=== PATIENT | female | born 1935 | race Caucasian/White ===

== ENCOUNTER 2016-11-25 02:29 | Inpatient (IN) | payer OTHER ==
[~2016-11-25] VITALS: Ht 165.1 cm; Wt 61.2 kg
[~2016-11-25 02:29] MED LIST: CALCIUM600 M2 PO; CO Q-10200 MG PO; MULTI-DAY VITA1 EACH PO; OCUVITE SOFTGE1 EACH PO; SEA-OMEGA 50 C1 EACH PO; VICODIN 5-3001 EACH PO; VITAMIN B-121000 MC3 PO; VITAMIN D31000 UNI1 PO
--- NOTE | 2016-11-25 02:32 | ED GI/GU/ABDOMINAL COMPLAINT ---
See Addendum History of Present Illness General Chief Complaint: Abdominal Pain/Flank Pain Stated Complaint: "BIBA PER EMS ABD PAIN" Source: patient, EMS, friend Exam Limitations: no limitations Vital Signs & Intake/Output Vital Signs & Intake/Output Vital Signs Date Time Temp Pulse Resp B/P Pulse O2 O2 Flow FiO2 Ox Delivery Rate 11/25 0355 96.6 96 18 145/80 96 11/25 0247 98 Room Air 11/25 0234 96.8 103 20 165/70 98 Room Air Allergies Coded Allergies: NO KNOWN ALLERGIES (07/31/13) Reconcile Medications Calcium Carbonate (Calcium) (Unknown Strength) TABLET (Unknown Dose) PO DAILY SUPPLEMENT (Reported) Cholecalciferol (Vitamin D3) (Vitamin D3) (Unknown Strength) CAPSULE 2,000 IU PO DAILY SUPPLEMENT (Reported) Cyanocobalamin (Vitamin B-12) (Unknown Strength) TABLET (Unknown Dose) PO DAILY SUPPLEMENT (Reported) Fish Oil (Sea-[place] 50 Capsule) (Unknown Strength) CAPSULE (Unknown Dose) PO DAILY SUPPLEMENT (Reported) Hydrocodone/Acetaminophen (Vicodin 5-300 MG Tablet) 1 EACH TABLET 1 TAB PO BID pain Magnesium Oxide (Magnesium) 500 MG CAPSULE 1 CAP PO DAILY VITAMIN SUPPORT ( Reported) Multivitamin (Multi-Day Vitamins) 1 EACH TABLET 1 TAB PO DAILY SUPPLEMENT ( Reported) [TUMERIC] 2 CAP PO DAILY VITAMIN SUPPORT (Reported) Ubidecarenone (Co Q-10) (Unknown Strength) CAPSULE 100 MG PO DAILY SUPPLEMENT (Reported) Vit C/Vit E/Lutein/Min/[place]-3 (Ocuvite Softgel) 1 EACH CAPSULE 1 CAP PO DAILY SUPPLEMENT (Reported) Triage Nurses Notes Reviewed? yes ? N Is pt currently ? No Onset: Gradual Duration: hour(s): Timing: recent history Quality/Severity: cramping Location: generalized abdomen, left upper quadrant Radiation: no radiation Activities at Onset: none Prior Abdominal Problems: none Modifying Factors: Worsens With: palpation. Associated Symptoms: abdominal pain, nausea/vomiting HPI: 81-year-old woman in prior good health on no medications, presents with 4-5 hours of diffuse abdominal pain, with distention, with episode of nausea and no vomiting. Her last bowel movement was yesterday evening. She has no chest pain shortness of breath fever chills dysuria. She is otherwise well and has no other concerns. Past History Travel History Traveled to [place] past 21 day No Medical History Any Pertinent Medical History? see below for history Neurological: NONE EENT: NONE Cardiovascular: NONE Respiratory: NONE Gastrointestinal: NONE Hepatic: NONE Renal: NONE Musculoskeletal: RECENT FALLS Psychiatric: NONE Endocrine: NONE Blood Disorders: NONE Cancer(s): NONE History of MRSA: No History of VRE: No History of CDIFF: No Surgical History Surgical History: FEMUR FRACTURE WITH SCARLETT PLACEMENT Psychosocial History Who do you live with Friend Services at Home None What is your primary language Malagasy Family History Hx Contributory? No Review of Systems Review of Systems Constitutional: Reports: no symptoms. EENTM: Reports: no symptoms. Respiratory: Reports: no symptoms. Cardiovascular: Reports: no symptoms. GI: Reports: no symptoms. Genitourinary: Reports: no symptoms. Musculoskeletal: Reports: no symptoms. Skin: Reports: no symptoms. Neurological/Psychological: Reports: no symptoms. Hematologic/Endocrine: Reports: no symptoms. Immunologic/Allergic: Reports: no symptoms. All Other Systems: Reviewed and Negative Physical Exam Physical Exam General Appearance: well developed/nourished, mild distress, moderate distress Head: atraumatic, normal appearance Eyes: Bilateral: normal appearance. Ears, Nose, Throat, Mouth: hearing grossly normal Neck: normal inspection, supple, full range of motion Respiratory: normal breath sounds, chest non-tender, no respiratory distress, quiet respiration, lungs clear Cardiovascular: regular rate/rhythm Gastrointestinal: soft, DISTENDED, TYPANIMIC, REDUCED BOWEL SOUNDS. Back: normal inspection Extremities: normal range of motion Neurologic/Psych: no motor/sensory deficits, awake, alert, oriented x 3 Skin: intact, normal color, warm/dry Core Measures ACS in differential dx? No Severe Sepsis Present: No Septic Shock Present: No Progress Differential Diagnosis: SBO VS DIVERTICULITIS VS ILEUS VS GASTROENTERITIS VS OTHER. Plan of Care: Orders Procedure Date/time Status LACTIC ACID 11/[address] in observation 11/25 035 Active [place], Insertion/Removal/Asses 11/25 035 Active CULTURE,URINE 11/25 035 Active PARTIAL THROMBOPLASTIN TIME 11/25 023 Complete PROTHROMBIN TIME 11/25 023 Complete URINALYSIS 11/25 023 Active TROPONIN LEVEL 11/25 023 Complete LIPASE 11/25 023 Complete LACTIC ACID 11/25 023 Complete HEPATIC FUNCTION PANEL 04/15 0233 Complete CBC WITHOUT DIFFERENTIAL 11/25 232 Complete BASIC METABOLIC PANEL 11/25 232 Complete AMYLASE 11/25 232 Complete EKG 11/25 232 Active TYPE & SCREEN (NOT X-MATCH) 11/25 232 Complete Laboratory Tests 11/25/16433: Urine Color Pending, Urine Clarity Pending, Urine pH Pending, Ur Specific [place] Pending, Urine Protein Pending, Urine Ketones Pending, Urine Nitrite Pending, Urine Bilirubin Pending, Urine Urobilinogen Pending, Ur Leukocyte Esterase Pending, Ur Microscopic SEDIMENT EXAMINED, Urine RBC Pending, Urine Hemoglobin Pending, Urine Glucose Pending 11/25/167: Anion Gap 12, Estimated GFR > 60, BUN/Creatinine Ratio 30.0 H, Glucose 131 H, Lactic Acid 1.9, Calcium 9.4, Total Bilirubin 0.6, Direct Bilirubin 0.4, AST 38 H, ALT 47, Alkaline Phosphatase 167 H, Troponin I < 0.01, Total Protein 6.4, Albumin 3.1 L, Amylase 59, Lipase 254, PT 12.3, INR 1.17, APTT 29, CBC w Diff MAN DIFF ORDERED, RBC 4.90, MCV 80.7 L, MCH 25.8 L, RDW 17.9 H, MPV 7.3 L, Gran % 88.3 H, Lymphocytes % 7.4 L, Monocytes % 4.1, Eosinophils % 0.1, Basophils % 0.1, Absolute Granulocytes 4.6, Segmented Neutrophils 79 H, Band Neutrophils 9 H, Absolute Lymphocytes 0.4 L, Lymphocytes 6 L, Monocytes 6, Absolute Monocytes 0.2, Absolute Eosinophils 0, Absolute Basophils 0, Platelet Estimate ADEQUATE, Hypochromic-Microcytic 1+, Ovalocytes FEW, PUBS MCHC 31.9 L, Fld Total RBCs Counted 100 Microbiology 11/25 433 URINE ROUT: Urine Culture - RECD Diagnostic Imaging: Viewed by Me: Radiology Read, CT Scan. Discussed w/RAD: Radiology Read, CT Scan. Pre-Hospital EKG: LBBB Initial ED EKG: LBBB, unchaged from prior. Departure Departure Disposition: STILL A PATIENT Condition: Stable Clinical Impression Primary Impression: Abdominal pain Secondary Impressions: Bowel perforation Referrals: PATIENT HAS NO PRIMARY CARE DR (PCP/Family) Departure Forms: Customer Survey General Discharge Information OR/GI Note Spoke With: GENOVEVA SANTILLAN DO ED Treatment Decision: ELODIAKWADWO requires urgent operative management or an emergent procedure that cannot be performed in the Emergency Room setting. pt with perforated bowel, will require OR repair...
--- NOTE | 2016-11-25 02:40 | NUR ---
PT BIBA FROM HOME C/O SUDDEN ONSET INTERMITANT SHARP LEFT SIDE ABDOMINALPAIN SINCE 2200 LAST EVENING. SOME NAUSEA, DENIES VOMITTING. LAST BM WAS EARLY YESTERDAY. ABDOMEN DISTENDED, ABSENT BOWEL SOUNDS. DR BUSCH AT BEDSIDE TO [facility] PT ON PT ARRIVAL TO ROOM
--- NOTE | 2016-11-25 02:44 | NUR ---
EKG DONE AND SHOWN TO DR FORMAN. BLOODS DRAWN BY SLOANE BELL AND SENT TO LAB. PT DENIES FALL IN THE LAST 6 MONTHS. USESAWALKERAT BASELINE.IS CURRENTLY GOING TO PT FOR PMH TIB/FIB FX. WEARS BRACE ON RTLEG, DID NOT BRING BRACE TO HOSPITAL. 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
[2016-11-25 02:59] LABS: ABSOLUTE BASOPHIL COUNT 0 /CUMM (0.0-0.2); ABSOLUTE EOSINOPHIL COUNT 0 /CUMM (0.0-0.7); ABSOLUTE GRANULOCYTE CT 4.6 /CUMM (1.4-6.5); ABSOLUTE LYMPH COUNT 0.4 /CUMM (1.2-3.4); ABSOLUTE MONOCYTE COUNT 0.2 /CUMM (0.10-0.60); BASOPHIL % 0.1 % (0.0-2.0); EOSINOPHIL % 0.1 % (0-5); HEMATOCRIT 39.5 % (37-47); MEAN CORPUSCULAR HGB 25.8 PG (27.0-31.0); MEAN CORPUSCULAR HGB CONC 31.9 G/DL (33.0-37.0); MEAN CORPUSCULAR VOLUME 80.7 FL (81.0-99.0); MEAN PLATELET VOLUME 7.3 FL (7.4-10.4); PLATELET COUNT 366 /CUMM (130-400); RBC DISTRIBUTION WIDTH 17.9 % (11.5-14.5); WHITE BLOOD CELL COUNT 5.2 /CUMM (4.8-10.8)
[2016-11-25 03:04] LABS: GRANULOCYTE % 88.3 % (42.2-75.2); PT 12.3 SEC (9.4-12.5); PTT 29 SEC (25-37)
--- NOTE | 2016-11-25 03:18 | NUR ---
PT TO CT VIA STRETCHER. PER DR FORMAN, OK TO WAIT FOR CT RESULTS PRIOT TO TYPE & SCREEN REDRAW
--- NOTE | 2016-11-25 03:41 | RADIOLOGY REPORT ---
EXAMINATION: CHEST 1 VIEW CLINICAL INFORMATION: Abnormal breathing. Abdominal distention. Decreased breath sounds. COMPARISON: 07/31/2013. TECHNIQUE: An AP view of the chest is provided. FINDINGS: The cardiac silhouette is not enlarged. The mediastinal and hilar contours are unremarkable. There are neither pleural effusions nor pneumothoraces. There are no consolidations. There is a moderate-sized hiatal hernia. There is a moderate amount of pneumoperitoneum. The osseous structures are unremarkable. IMPRESSION: Pneumoperitoneum. A subsequent chest CT was performed. Hiatal hernia. No acute airspace disease.
--- NOTE | 2016-11-25 03:50 | CT SCAN REPORT ---
EXAMINATION: CT ABDOMEN AND PELVIS WITHOUT CONTRAST CLINICAL INFORMATION: Decreased bowel sounds. Abdominal distention. Follow-up abnormal exam. COMPARISON: Same day chest radiograph. TECHNIQUE: Contiguous axial thin section helical images of the abdomen and pelvis were performed without oral or IV contrast. The data set was reformatted in the coronal and sagittal planes and reviewed on an independent workstation. DLP: 329 mGy-cm. FINDINGS: There is mild dependent bibasilar atelectasis. Within the right lower lobe on image 15/704, there is a 3 mm nodule. The visualized lung bases are otherwise clear. The visualized portions of the heart are unremarkable. There is a moderate hiatal hernia. There is a moderate amount of pneumoperitoneum. The liver is of normal size and attenuation without focal lesions nor intrahepatic biliary ductal dilation. A normal gallbladder is identified. There is no wall thickening or discernible pericholecystic fluid. The spleen, pancreas, adrenal glands are unremarkable. Both kidneys are of normal size and attenuation without hydronephrosis or nephrolithiasis. There is a small amount of free fluid identified about the liver and spleen. In addition, there is a small amount of free fluid in both lower quadrants. There is neither mesenteric nor retroperitoneal lymphadenopathy. There is sigmoid diverticulosis without evidence of diverticulitis. There is stranding noted within the upper abdomen, particularly about the stomach. In addition, there is stranding about the splenic flexure. There is no colonic wall thickening. There is a small amount of gas present anterior to the anterior abdominal wall in a subcutaneous location. Best identified on the sagittal reconstructions, it appears as though there is a bowel containing anterior abdominal wall hernia at this location. There are no dilated loops of bowel. There is a small amount of pelvic free fluid. The urinary bladder is unremarkable. There is neither pelvic nor inguinal lymphadenopathy. There is a fat-containing left inguinal hernia. Bone windows: Neither sclerotic nor lytic bone lesions are identified. Bilateral intramedullary rods are present within the femurs. There is multilevel disc height loss within the mid to lower lumbar spine. IMPRESSION: Moderate amount of pneumoperitoneum and small amount of abdominal and pelvic free fluid. Of bowel perforation is suspected, though the location is uncertain. In that there is fat stranding within the upper abdomen adjacent to the stomach, a gastric or duodenal perforated ulcer may be the etiology for this appearance. There is also nonspecific stranding identified about the descending colon without colonic wall thickening. There is sigmoid diverticulosis without evidence of diverticulitis. There is a small anterior abdominal wall bowel containing hernia without evidence of obstruction. Moderate hiatal hernia. The aforementioned was communicated to Dr. Moscoso at 0343 hours.
--- NOTE | 2016-11-25 04:06 | NUR ---
PT MEDICATED WITH 2 MG MORPHINE IV FOR PAIN. 1L NS INFUSING AND 3 G UNASYN INFUSING ORDERED
[2016-11-25] MEDS ORDERED: TUMERIC PO (04:25)
[2016-11-25] MEDS ORDERED: MAGNESIUM500 M2 PO (04:26)
--- NOTE | 2016-11-25 05:53 | History & Physical Pre-Op ---
[address] 11/25/16 0551: General Information and HPI MD Statement: I have seen and personally examined KWADWO CLIFTON and documented this H&P. The patient is a 81 year old F who presented with a patient stated chief complaint of abdominal pain. Source of Information: patient, old records Exam Limitations: no limitations History of Present Illness: Is an 81-year-old female with a history of an innocent murmur childhood, no other medical problems, who was brought in by ambulance to the [place] ED with complaints of acute onset of upper abdominal pain since about 10 PM last night. Patient states that she ate dinner in the evening and tolerated it well. She started to experience pain which was so severe that it limited her mobility. She admits to some nausea, but otherwise denies fevers, chills, headache, dizziness, chest pain, shortness of breath, cough, emesis, diarrhea, constipation, dysuria. Workup in the ED revealed evidence of pneumoperitoneum. She remains hemodynamically stable. Allergies/Medications Allergies: Coded Allergies: NO KNOWN ALLERGIES (07/31/13) Home Med list Ascorbate Calcium (Vitamin C) 500 MG TABLET 1 TAB PO DAILY SUPPLEMENT ( Reported) [CALCIUM] 2,000 MG TAB 1 TAB PO DAILY SUPPLEMENT (Reported) Cholecalciferol (Vitamin D3) (Vitamin D) 2,000 UNIT CAPSULE 1 CAP PO DAILY SUPPLEMENT (Reported) Cyanocobalamin (Vitamin B-12) (B-12) 1,000 MCG TABLET 1 TAB PO DAILY supplement (Reported) Fish Oil/Borage/Flax/Om3,6,9#1 ([place] 3-6-9 1,200 MG Softgel) 1,200 MG CAPSULE 1 CAP PO DAILY SUPPLEMENT (Reported) Magnesium Oxide (Magnesium) 500 MG CAPSULE 1 CAP PO DAILY VITAMIN SUPPORT ( Reported) Multivitamin (Multi-Day Vitamins) 1 EACH TABLET 1 TAB PO DAILY SUPPLEMENT ( Reported) [TUMERIC] 2 CAP PO DAILY VITAMIN SUPPORT (Reported) Ubidecarenone (Coq-10) 100 MG CAPSULE 1 CAP PO DAILY SUPPLEMENT (Reported) Vit C/Vit E/Lutein/Min/[place]-3 (Ocuvite Softgel) 1 EACH CAPSULE 1 CAP PO DAILY SUPPLEMENT (Reported) Past History Medical History Neurological: NONE EENT: NONE Cardiovascular: NONE, INNOCENT MURMUR SINCE CHILDHOOD Respiratory: NONE Gastrointestinal: NONE Hepatic: NONE Renal: NONE Musculoskeletal: RECENT FALLS TIB/FIB FX Psychiatric: NONE Endocrine: NONE Blood Disorders: NONE Cancer(s): NONE History of MRSA: No History of VRE: No History of CDIFF: No Surgical History Pertinent Surgical History: FEMUR FRACTURE WITH SCARLETT PLACEMENT, ORIF HIP FRACTURE 2013 Past Family/Social History Psychosocial History Where Do You Live? Home Who Do You Live With? FRIEND, HIGINIO Services at Home None Primary Language: Ukrainian ETOH Use: occasional use Illicit Drug Use: denies illicit drug use Living Will? yes Power of Entry Level Assistant Manager/HCP? yes Name of POA/HCP: HIGINIO Functional Ability Ambulation: walker Review of Systems Review of Systems: Positive for abdominal pain and nausea. Negative for fevers, chills, headache, dizziness, chest pain, shortness of breath, cough, emesis, diarrhea, constipation, dysuria. Exam & Diagnostic Data Last 24 Hrs of Vital Signs/I&O Vital Signs Date Time Temp Pulse Resp B/P Pulse O2 O2 Flow FiO2 Ox Delivery Rate 11/25 0601 97.1 97 18 150/74 96 11/25 0355 96.6 96 18 145/80 96 11/25 0247 98 Room Air 11/25 0234 96.8 103 20 165/70 98 Room Air Intake & Output 11/25 0800 11/25 0000 11/24 1600 Intake Total 1100 Output Total Balance 1100 Intake, IV 1100 Patient 135 lb Weight Physical Exam: Gen.: Patient is awake and alert. No acute distress. She is cooperative and follows commands. She verbalizes well. Cardiac: Regular. There is a notable systolic murmur. Pulmonary: Lungs are clear to auscultation bilaterally. No wheezes, rales, rhonchi or appreciated. Abdomen: Soft and moderately distended. There is significant tenderness to light palpation in the epigastric area, and extending into the both the right upper and left upper quadrants. Positive guarding. No rebound. Hypoactive bowel sounds were heard. No surgical scars were appreciated. Extremities: Feet are warm. 2+ pedal pulses are appreciated. No significant edema or calf tenderness appreciated. Last 24 Hrs of Labs/Zach: Laboratory Tests 11/25/16 0434: Urine Color YEL, Urine Clarity HAZY H, Urine pH 6.0, Ur Specific [place] 1.020, Urine Protein 30 H, Urine Ketones TRACE H, Urine Nitrite POS H, Urine Bilirubin NEG, Urine Urobilinogen 0.2, Ur Leukocyte Esterase MOD H, Ur Microscopic SEDIMENT EXAMINED, Urine RBC 1-3, Urine WBC 25-50 H, Ur Epithelial Cells RARE, Urine Bacteria PACKD H, Urine Hemoglobin SMALL H, Urine Glucose NEG 11/25/16 0237: Anion Gap 12, Estimated GFR > 60, BUN/Creatinine Ratio 30.0 H, Glucose 131 H, Lactic Acid 1.9, Calcium 9.4, Total Bilirubin 0.6, Direct Bilirubin 0.4, AST 38 H, ALT 47, Alkaline Phosphatase 167 H, Troponin I < 0.01, Total Protein 6.4, Albumin 3.1 L, Amylase 59, Lipase 254, PT 12.3, INR 1.17, APTT 29, CBC w Diff MAN DIFF ORDERED, RBC 4.90, MCV 80.7 L, MCH 25.8 L, RDW 17.9 H, MPV 7.3 L, Gran % 88.3 H, Lymphocytes % 7.4 L, Monocytes % 4.1, Eosinophils % 0.1, Basophils % 0.1, Absolute Granulocytes 4.6, Segmented Neutrophils 79 H, Band Neutrophils 9 H, Absolute Lymphocytes 0.4 L, Lymphocytes 6 L, Monocytes 6, Absolute Monocytes 0.2, Absolute Eosinophils 0, Absolute Basophils 0, Platelet Estimate ADEQUATE, Hypochromic-Microcytic 1+, Ovalocytes FEW, PUBS MCHC 31.9 L, Fld Total RBCs Counted 100 Microbiology 11/25 0434 URINE ROUT: Urine Culture - RECD Diagnostic Data CXR Results Pneumoperitoneum. A subsequent chest CT was performed. Hiatal hernia. No acute airspace disease. Other Results CT scan of abdomen and pelvis revealed: Moderate amount of pneumoperitoneum and small amount of abdominal and pelvic free fluid. Of bowel perforation is suspected, though the location is uncertain. In that there is fat stranding within the upper abdomen adjacent to the stomach, a gastric or duodenal perforated ulcer may be the etiology for this appearance. There is also nonspecific stranding identified about the descending colon without colonic wall thickening. There is sigmoid diverticulosis without evidence of diverticulitis. There is a small anterior abdominal wall bowel containing hernia without evidence of obstruction. Moderate hiatal hernia. Assessment/Plan Assessment/Plan: Patient is an 81-year-old female with Past medical history other than an innocent murmur from childhood, who presents with acute abdominal pain, found to be due to pneumoperitoneum. It appears as though the origin of the air is proximal, possibly stomach or duodenum. Plan: -Patient will require urgent surgical exploration this morning. She understands the need for this urgent procedure and agrees to proceed. -She will be an ICU admission for now. -Keep patient nothing by mouth. Continue IV fluids. Echocardiogram done in 2012 revealed an EF of greater than 60%, however no further workup has been done since then. Patient does not have a PCP and considers herself to be in good health at baseline. -Pain control with Dilaudid, as morphine does not work well for her. -IV Unasyn 1 now for peritonitis. Patient also has an asymptomatic UTI, which this should also cover. -This was discussed in detail with both the patient and her friend Higinio, as well as Dr. Rodriguez. All are in agreement. -Medical clearance is not being obtained, as this is an urgent, lifesaving procedure. As Ranked By This Provider Problem List: 1. Pneumoperitoneum of unknown etiology GENOVEVA RODRIGUEZ DO 11/25/16 1046: Attending MD Review Statement Attending Statement Attending MD Statement: examined this patient, discuss w/resident/PA/PIPE COVERER HELPER, agreed w/resident/PA/PIPE COVERER HELPER, reviewed images Attending Assessment/Plan: Acute onset abdominal pain. CT scan shows free air likely from a perforated gastric/duadenal ulcer. Abd exam with significant tenderness. Patient will be admitted and given IVF/IV Abx, and plan for an urgent Dx Laparoscopy with repair.
--- NOTE | 2016-11-25 06:03 | NUR ---
PT STILL C/O 04/22 PAIN. PT MEDICATED 1MG HYDROMORPHONE PER ORDER
[2016-11-25] MEDS ORDERED: B-121000 MC3 PO (06:32)
[2016-11-25] MEDS ORDERED: VITAMIN C500 M6 PO (06:33)
[2016-11-25] MEDS ORDERED: OMEGA 3-6-9 11200 MG PO (06:37)
[2016-11-25] MEDS ORDERED: CALCIUM PO (06:40)
[2016-11-25] MEDS ORDERED: VITAMIN D2000 UNIT PO (06:42)
[2016-11-25] MEDS ORDERED: COQ-10100 MG PO (06:43)
--- NOTE | 2016-11-25 07:00 | NUR ---
ASSUMED CARE, PT AWAKE AND ALERT AT THIS TIME, ABD PAIN 5/10 AT THIS TIME , PT DENIES NEEDING ANYTHING FOR PAIN. PT AWARE THAT WE ARE WAITING FOR CALL STATING THAT THE OR IS READY FOR HER, FLUIDS INFUSING AT 100ML/HR VIA DIAL A FLOW.
--- NOTE | 2016-11-25 07:47 | NUR ---
PT AWAKE ALERT AND ORIENTED AT THIS TIME, STATES THAT ABD PAIN IS ABOUT 3/10 . WAITING ALIGNMENT MECHANIC THAT OR IS READY
--- NOTE | 2016-11-25 08:16 | NUR ---
PT TO OR
--- NOTE | 2016-11-25 10:45 | Operative Report ---
Operative/Inv Procedure Report Surgery Date: 11/25/16 Name of Procedure: Diagnostic laparoscopy, abdominal washout, laparoscopic repair of a perforated gastric ulcer (gastrorrhaphy) with an omental patch. Pre-Operative Diagnosis: Parforated bowel, peritonitis Post-Operative Diagnosis: Perforated anterior gastric ulcer, peritonitis Estimated Blood Loss: less than 50ml Surgeon/Lease Out Man: GENOVEVA SANTILLAN DO, MD Anesthesia: general endotracheal tube IV Fluids: 2000 cc Drains: 10 Fr LUQ ERICKA behind the spleen, 10 Fr RUQ ERICKA going across under liver to the LUQ , 10 Fr RLQ ERICKA into the pelvis Specimens: None Complications: None Condition: Stable Operative Indication: This is an 81-year-old female who presented to the emergency room with acute onset of abdominal pain. After appropriate workup was completed the patient was noted to have intra-abdominal free air and had peritonitis on physical exam. CT scan was indicative of a possible gastric or duodenal ulcer perforation. At that point a diagnostic laparoscopy possible laparotomy and repair of perforation was discussed in detail. All risks including but not limited to bleeding, infection, injury to surrounding bowel, and potential need for further surgery were discussed in detail. The patient understood everything and decided to proceed. Operative/Procedure Note Note: The patient was brought to the operating room and placed on the table in supine position. Venodyne stockings were placed and adequate general endotracheal anesthesia was obtained. The patient was prepped and draped in standard surgical fashion after a TAP block was performed by anesthesia. Began the procedure by making a 2 cm midline incision above the umbilicus. The incision was carried down to the fascia and once the fascia was clearly visualized was picked up between 2 Jason clamps and divided in the midline. Once we entered the peritoneum 2 stay 0 Vicryl sutures were placed on each side. A 12 mm blunt port was inserted and the abdominal cavity was insufflated to 15 mmHg. Upon initial examination we did note copious amounts of seropurulent fluid and white rind in the left upper quadrant and on the anterior surface of the stomach. Accessory trocars were placed 5 mm in the right upper quadrant and a 5 mm left upper quadrant, and a 12 mm in the right lateral position. At that point all the bowel was dissected off the anterior abdominal wall using blunt dissection. Anterior portion of the stomach was examined and explored, a small perforation was noted at the antrum/body junction close to the incisura angularis. Once we were adequately able to visualize the perforation it was primarily closed using 2-0 Vicryl suture. Following this an omental patch was dissected and tacked down using the same 2-0 Vicryl suture. 2 more 2-0 silk sutures were used to tack the patch down around the perforation. At the completion we had adequate repair of the perforation and the omental patch was adequately overlying it. At that point the abdominal cavity was irrigated using 6 L of normal saline. No further abnormalities were noted. Three 10 Romanian ERICKA drains were placed, one on the left side behind the spleen, one going from the right under the liver to the left upper quadrant, and one into the pelvis. Ports were removed under direct visualization no obvious bleeding was noted. The umbilical trocar site was closed using 0 Vicryl suture. The skin was closed using 4-0 Vicryl. Steri- Strips and dressings were placed. The patient was successfully extubated and transferred to the recovery room in stable condition. The patient tolerated the procedure well with no complications. Findings: Small perforated gastric ulcer on anterior surface of antrum/body junction close to incisura angularis
[2016-11-25 11:40] VITALS: BP 146/65
[2016-11-25 14:00] VITALS: BP 132/70
--- NOTE | 2016-11-25 17:35 | PN- General Surgery ---
Subjective Subjective: poc s/p lap myranda patch for gastric ulcer perf resting comfortably denies cp, sob Objective Vital Signs and I&Os Vital Signs Date Time Temp Pulse Resp B/P Pulse O2 O2 Flow FiO2 Ox Delivery Rate 11/25 1400 97.7 86 18 132/70 95 Room Air 11/25 1140 97.6 74 20 146/65 97 Room Air 11/25 0746 97.1 99 18 164/84 97 Nasal 2.0L Cannula 11/25 0659 97.1 100 18 163/90 96 Nasal 2.0L Cannula 11/25 0601 97.1 97 18 150/74 96 11/25 0355 96.6 96 18 145/80 96 11/25 0247 98 Room Air 11/25 0234 96.8 103 20 165/70 98 Room Air Intake & Output 11/25 1600 11/25 0800 11/25 0000 11/24 1600 11/24 0800 11/24 0000 Intake Total 1100 Output Total 660 Balance -660 1100 Intake, IV 1100 Output, 60 Drainage Output, Urine 600 Patient 135 lb 135 lb Weight Physical Exam: cv: rrr lungs: clear abd: softly distended drsg dry no guarding to palp ext: warm, distal cms intact [place]: clear urine ngt: no drainage jpX2: serous drainage Assessment/Plan Assessment/Plan srugical stable plan hep sq/alps iv ppi iv abx npo/ngt titrate pain meds Core Measures/Miscellaneous Venous Thromboembolism VTE Risk Factors: Age > 40, Surgery VTE Contraindications: No Contraindications VTE Diagnosis: No Beta Ger Is Beta Ger a Home Med? No Antibiotics Is Patient on Antibiotics? Yes
[2016-11-25 18:30] VITALS: BP 112/70
[2016-11-25 22:00] VITALS: BP 124/78
[2016-11-26] VITALS (7 sets, daily range): BP systolic 114–140; BP diastolic 63–78
--- NOTE | 2016-11-26 05:49 | NUR ---
PT ALERT AND ORIENTED, TEMP THIS AM 101. IV TYLENOL INFUSING, RA 88% PLACED TO 2LNC 95%. IST GIVEN. ABDOMEN DISTENDED/SOFT, POSITIVE BOWEL SOUNDS, ERICKA TIMES 3, LEFT SIDE LEAKING A LITTLE AROUND INSERTION SITE. DRESSING TO ABDOMEN CLEAN DRY AND INTACT. NGT PATENT TO LWS. DIALUDID WITH GOOD PAIN CONTROL. LAUREN WITH DIVINA URINE GOOD OUTPUT. ALPS ARE ON, CALL GARCIA WITHIN REACH
--- NOTE | 2016-11-26 07:48 | NUR ---
PT NOTED TO HAVE SLIGHT TACHYCARDIA. OVERNIGHT INOFRMED SURGICAL SATISH CHURCH NOW. PT IN NO ACUTE DISTRESS. WILL CONT TO MONITOR.
[2016-11-26 08:02] LABS: ABSOLUTE BASOPHIL COUNT 0 /CUMM (0.0-0.2); ABSOLUTE EOSINOPHIL COUNT 0.1 /CUMM (0.0-0.7); ABSOLUTE GRANULOCYTE CT 4.2 /CUMM (1.4-6.5); ABSOLUTE LYMPH COUNT 0.6 /CUMM (1.2-3.4); ABSOLUTE MONOCYTE COUNT 0.6 /CUMM (0.10-0.60); BASOPHIL % 0.4 % (0.0-2.0); WHITE BLOOD CELL COUNT 5.5 /CUMM (4.8-10.8)
[2016-11-26 08:33] LABS: EOSINOPHIL % 1.8 % (0-5); GRANULOCYTE % 77.2 % (42.2-75.2); MEAN CORPUSCULAR HGB 25.9 PG (27.0-31.0); MEAN CORPUSCULAR HGB CONC 32.2 G/DL (33.0-37.0); MEAN CORPUSCULAR VOLUME 80.6 FL (81.0-99.0); MEAN PLATELET VOLUME 7.7 FL (7.4-10.4); PLATELET COUNT 364 /CUMM (130-400); RBC DISTRIBUTION WIDTH 17.6 % (11.5-14.5); RED BLOOD CELL CT 4.15 /CUMM (4.20-5.40)
[2016-11-26 08:37] LABS: HEMATOCRIT 33.4 % (37-47)
--- NOTE | 2016-11-26 09:27 | PN- General Surgery ---
See Addendum Subjective Subjective: Patient spiked a temp to 101 overnight, with associated tachycardia in the 110s. She is afebrile and heart rate has normalized at this time. She denies any significant complaints. Admits to minor incisional pain, as expected. NG tube remains in place. She denies nausea. No flatus or bowel movement as of yet. She is out of bed to the chair and states that she feels so much better versus preop. Tavares catheter remains in place. She otherwise denies headache, dizziness, chest pain, shortness of breath. Objective Vital Signs and I&Os Vital Signs *most recent HR this morning was reported by RN to be 88. Date Time Temp Pulse Resp B/P Pulse O2 O2 Flow FiO2 Ox Delivery Rate 11/26 0649 99.6 11/26 0546 101.0 108 18 140/66 97 Nasal 2.0L Cannula 11/26 0536 101.0 11/26 0119 98.2 110 20 116/78 94 Room Air 11/25 2200 99.7 110 18 124/78 92 Room Air 11/25 2002 100.6 11/25 2003 100.6 11/25 1906 101.4 11/25 1830 101.4 110 18 112/70 92 Room Air 11/25 1400 97.7 86 18 132/70 95 Room Air 11/25 1140 97.6 74 20 146/65 97 Room Air Intake & Output 11/26 1600 11/26 0800 11/26 0000 11/25 1600 11/25 0800 11/25 0000 Intake Total 404 703 8549 Output Total 595 590 660 Balance 205 310 -660 1100 Intake, IV 090 111 8850 Intake, Oral 0 0 Output, 145 190 60 Drainage Output, 50 Gastric Drainage Output, Urine 400 400 600 Patient 135 lb 135 lb Weight Physical Exam: Gen.: Patient is awake and alert. No acute distress. She was examined sitting in the chair. Cardiac: Regular rate and rhythm. Unchanged systolic murmur. Pulmonary: There are decreased breath sounds at the bilateral bases. Lungs are clear at the apices and mid lung strong. No wheezes, rales, or rhonchi are appreciated. Abdomen: Soft, but still moderately distended. There is a small amount of serous drainage around the ERICKA drains. ERICKA output is serous. There has been a total of about 400 mL out of the drains since arrival to the floor. No purulence or bilious output is noted. +incisional tenderness, as expected. Hypoactive bowel sounds are heard. Extremities: No significant edema or calf tenderness noted bilaterally. Assessment/Plan Assessment/Plan Patient is an 81-year-old female who is now postoperative day #1 status post exploratory laparoscopy with Chucho patch repair of gastric ulcer for pneumoperitoneum. She remains relatively stable from a surgical standpoint. NG tube, Tavares, and 3 ERICK[address] drains remain in place. She had a fever overnight, which could be due to atelectasis, but she also has the possibility of infectious sources such as peritonitis and, or UTI. Plan: -Discontinue Tavares. Decrease IV fluids to 80 ML's per hour. -Keep NG tube in place. Keep nothing by mouth for now. Plan for Gastrograffin swallow in the morning to rule out leak. -Continue to monitor temps. White blood cell count is normal. Follow-up urine culture. Continue Unasyn for peritonitis. -Leave ERICKA drains in place for now. Monitor for signs of bilious or purulent output. -Monitor electrolytes. -Protonix for GI prophylaxis. -Subcutaneous heparin and Alps for DVT prophylaxis. -Continue to mobilize out of bed. -PT consult in the morning for discharge recommendations. -Will d/w attending. Core Measures/Miscellaneous Tavares Catheter Date In: 11/24/16 Still Needed? No Venous Thromboembolism VTE Risk Factors: Age > 40, Surgery VTE Contraindications: No Contraindications VTE Diagnosis: No Beta Ger Is Beta Ger a Home Med? No Antibiotics Is Patient on Antibiotics? Yes
--- NOTE | 2016-11-26 11:30 | NUR ---
LATE ENTRY: PT CALLED RN TO ROOM. NG TUBE NOTED IN PT'S HAND. PT REPORTS SHE FELT HER "NOSE WAS WET" AND "IT CAME OUT." SURGICAL SATISH CHURCH NOTIFIED. PER PA, DR. SANTILLAN CONTACTED. SNO. WILL CONT TO MONITOR.
--- NOTE | 2016-11-26 12:02 | Event Note ---
Event Note Event Note: I was called by RN to inform me that the patient pulled her ngt out. It doesn't appear to be intentional. Pt states that the tube was "wet." I advised the tube to not be replaced due to the risk of injury to the myranda patch without direct visualization. Dr. Rodriguez agrees. Plan for gastrograffin swallow in am.
--- NOTE | 2016-11-26 23:55 | Surgical Discharge Summary ---
Visit Information Visit Dates Admission Date: 11/25/16 Discharge Date: 12/04/16 History of Present Illness Chief Complaint: Abdominal pain Medical History Neurological: NONE EENT: NONE Cardiovascular: NONE, INNOCENT MURMUR SINCE CHILDHOOD Respiratory: NONE Gastrointestinal: NONE Hepatic: NONE Renal: NONE Musculoskeletal: RECENT FALLS TIB/FIB FX Psychiatric: NONE Endocrine: NONE Blood Disorders: NONE Cancer(s): NONE ELECTROCARDIOGRAPHIC TECHNICIAN/Reproductive: NONE History of MRSA: No History of VRE: No History of CDIFF: No Isolation History: Standard Surgical History Pertinent Surgical History: FEMUR FRACTURE WITH SCARLETT PLACEMENT ORIF HIP FRACTURE 2013 Psychosocial History Where Do You Live? Home Who Do You Live With? Friend Services at Home: None What is Your Primary Language? Portuguese ETOH Use: occasional use Review of Systems: see HPI Hospital Course Course Attending Physician: GENOVEVA RODRIGUEZ DO Primary Care Physician: PATIENT HAS NO PRIMARY CARE DR Hospital Course: Patient is an 81-year-old female with no significant past medical history other than an innocent murmur since childhood, who presented to the emergency department on 11/24/2016, with complaints of acute onset of severe upper abdominal and epigastric pain. Workup in the ED revealed pneumoperitoneum and UTI. Within a few hours (on 11/25/2016), patient underwent urgent exploratory laparoscopy with Chucho patch repair of a gastric ulcer. Patient was transferred to the general medical floor in stable condition. She initially spikes some temps overnight following her surgery. The temps or most likely attributed to atelectasis, however infectious source from peritonitis or UTI could not be ruled out. Antibiotics were subsequently changed from Unasyn to Rocephin and Flagyl for better gram-negative coverage. Her nasogastric tube was inadvertently pulled out on postop day #1, but her postoperative course was otherwise uncomplicated. She was out of bed and ambulated in with physical therapy on postoperative day #1. Tavares catheter was removed and she was voiding well. She was kept NPO until a Gastrografin swallow was done on postoperative day #2. Her diet was advanced further and she tolerated it well. Her antibiotics were discontinued because she developed diarrhea, although she did complete a 7 day course while in the hospital. Her remaining drains were removed, and she was stable for discharge home with outpatient follow-up with Dr. Rodriguez as an outpatient. Complications: None Allergies: Coded Allergies: NO KNOWN ALLERGIES (07/31/13) Significant Procedures: 11/25/2016 exploratory laparoscopy and Chucho patch repair of gastric ulcer Disposition Summary Disposition Principal Diagnosis: Perforated gastric ulcer Additional Diagnosis: None Discharge Disposition: home or self care Discharge Instructions General Discharge Information Code Status: Full Code Patient's Diet: as tolerated Patient's Activity: Avoid strenuous activity and heavy lifting, pushing, pulling. No driving if Using narcotics. Follow-Up Instructions/Appts: You may shower as desired. Leave Steri-Strips in place until they fall off on her own. Please follow-up with your doctor in 1-2 weeks. Please report any of the following symptoms to MD: Fever greater than 101, redness or drainage from the incision site, increased abdominal pain, chest pain , shortness of breath. Medications at Discharge Discharge Medications: Continue taking these medications: Multivitamin (Multi-Day Vitamins) 1 EACH TABLET 1 Tablet ORAL DAILY Comments: NOT GIVEN WHILE HOSPITALIZED Vit C/Vit E/Lutein/Min/[place]-3 (Ocuvite Softgel) 1 EACH CAPSULE 1 Capsule ORAL DAILY Comments: NOT GIVEN WHILE HOSPITALIZED [TUMERIC] 2 Capsule ORAL DAILY Comments: NOT GIVEN WHILE HOSPITALIZED Magnesium Oxide (Magnesium) 500 MG CAPSULE 1 Capsule ORAL DAILY Comments: NOT GIVEN WHILE HOSPITALIZED Cyanocobalamin (Vitamin B-12) (B-12) 1,000 MCG TABLET 1 Tablet ORAL DAILY Comments: NOT GIVEN WHILE HOSPITALIZED Ascorbate Calcium (Vitamin C) 500 MG TABLET 1 Tablet ORAL DAILY Comments: NOT GIVEN WHILE HOSPITALIZED Fish Oil/Borage/Flax/Om3,6,9#1 ([place] 3-6-9 1,200 MG Softgel) 1,200 MG CAPSULE 1 Capsule ORAL DAILY Comments: NOT GIVEN WHILE HOSPITALIZED [CALCIUM] 2,000 MG TAB 1 Tablet ORAL DAILY Comments: NOT GIVEN WHILE HOSPITALIZED Cholecalciferol (Vitamin D3) (Vitamin D) 2,000 UNIT CAPSULE 1 Capsule ORAL DAILY Comments: NOT GIVEN WHILE HOSPITALIZED Ubidecarenone (Coq-10) 100 MG CAPSULE 1 Capsule ORAL DAILY Comments: NOT GIVEN WHILE HOSPITALIZED Start taking the following new medications: Oxycodone HCl/Acetaminophen (Percocet 5-325 MG Tablet) 5 MG-325 MG TABLET 1-2 Tablet ORAL EVERY 4 HOURS NEEDED as needed for PAIN Qty = 30 No Refills Comments: LAST DOSE GIVEN 12/04/16 AT 09:30 AM
[2016-11-27 06:03] VITALS: BP 146/72
--- NOTE | 2016-11-27 07:50 | PN- General Surgery ---
Subjective Subjective: Awake, alert No specific complaints no nausea No flatus or BM yet but feeling movement in the abdomen Ambulating without difficulty Objective Vital Signs and I&Os Vital Signs Date Time Temp Pulse Resp B/P Pulse O2 O2 Flow FiO2 Ox Delivery Rate 11/27 0603 99.0 98 18 146/72 95 Room Air 11/26 2253 98.7 111 20 132/66 95 Room Air 11/26 1815 97.2 110 20 114/64 96 Nasal 4.0L Cannula 11/26 1417 99.1 104 20 132/65 98 Nasal 1.0L Cannula 11/26 1005 100.6 103 20 127/63 99 Nasal 1.0L Cannula 11/26 0900 88 96 Nasal 1.0L Cannula 11/26 0800 96 Nasal 2.0L Cannula Intake & Output 11/27 0800 11/27 0000 11/26 1600 11/26 0800 11/26 0000 11/25 1600 Intake Total 660 560 820 800 900 Output Total 355 740 320 595 590 660 Balance 305 -180 500 205 310 -660 Intake, IV 660 560 820 800 900 Intake, Oral 0 0 0 0 0 Number 0 Bowel Movements Output, 55 40 120 145 190 60 Drainage Output, 50 Gastric Drainage Output, Urine 300 700 200 400 400 600 Patient 135 lb Weight Physical Exam: temp 99 this morning VSS General: alert and oriented times three Chest: clear anteriorly bilaterally, RRR Abd: soft, nondistended, good bs in all quadrants wounds: dressed, dry Ext: warm, no edema ERICKA's 1: 20/8 hours, 75cc/24 hrs 2: 5/8 hours, 30cc/24 hours 3: 30/8 hours, 110/24 hours All serosanguinous Results Last 48 Hours of Labs: Laboratory Tests 11/27 11/26 0630 0632 Chemistry Sodium (137 - 145 mmol/L) Pending 134 L Potassium (3.5 - 5.1 mmol/L) Pending 4.3 Chloride (98 - 107 mmol/L) Pending 104 Carbon Dioxide (22 - 30 mmol/L) Pending 22 Anion Gap (5 - 16) Pending 8 BUN (7 - 17 mg/dL) Pending 14 Creatinine (0.5 - 1.0 mg/dL) Pending 0.6 Estimated GFR (>60 ml/min) > 60 BUN/Creatinine Ratio (7 - 25 %) Pending 23.3 Magnesium Pending Troponin I (< 0.11 ng/ml) < 0.01 Hematology CBC w Diff Pending NO MAN DIFF REQ WBC (4.8 - 10.8 /CUMM) Pending 5.5 RBC (4.20 - 5.40 /CUMM) Pending 4.15 L Hgb (12.0 - 16.0 G/DL) Pending 10.8 L Hct (37 - 47 %) Pending 33.4 L MCV (81.0 - 99.0 FL) Pending 80.6 L MCH (27.0 - 31.0 PG) Pending 25.9 L RDW (11.5 - 14.5 %) Pending 17.6 H Plt Count (130 - 400 /CUMM) Pending 364 MPV (7.4 - 10.4 FL) Pending 7.7 Gran % (42.2 - 75.2 %) 77.2 H Lymphocytes % (20.5 - 51.1 %) 10.4 L Monocytes % (1.7 - 9.3 %) 10.2 H Eosinophils % (0 - 5 %) 1.8 Basophils % (0.0 - 2.0 %) 0.4 Absolute Granulocytes (1.4 - 6.5 /CUMM) 4.2 Absolute Lymphocytes (1.2 - 3.4 /CUMM) 0.6 L Absolute Monocytes (0.10 - 0.60 /CUMM) 0.6 Absolute Eosinophils (0.0 - 0.7 /CUMM) 0.1 Absolute Basophils (0.0 - 0.2 /CUMM) 0 PUBS MCHC (33.0 - 37.0 G/DL) Pending 32.2 L Assessment/Plan Assessment/Plan 81 yo female s/p myranda patch/gastric ulcer pod 2 npo awaiting gg swallow eval this am good bs - consider clear liquids if swallow eval negative await bowel function fu cultures rocephin/flagyl for peritonitis, awaiting final cx/sens continue ERICKA's for now Core Measures/Miscellaneous Tavares Catheter Date In: 11/24/16 Venous Thromboembolism VTE Risk Factors: Age > 40, Surgery VTE Contraindications: No Contraindications VTE Diagnosis: No Beta Ger Is Beta Ger a Home Med? No Antibiotics Is Patient on Antibiotics? Yes
[2016-11-27 08:23] LABS: ABSOLUTE BASOPHIL COUNT 0 /CUMM (0.0-0.2); ABSOLUTE EOSINOPHIL COUNT 0.2 /CUMM (0.0-0.7); ABSOLUTE GRANULOCYTE CT 1.2 /CUMM (1.4-6.5); ABSOLUTE LYMPH COUNT 0.5 /CUMM (1.2-3.4); ABSOLUTE MONOCYTE COUNT 0.5 /CUMM (0.10-0.60); BASOPHIL % 0 % (0.0-2.0); EOSINOPHIL % 6.6 % (0-5); GRANULOCYTE % 51.6 % (42.2-75.2); HEMATOCRIT 29.9 % (37-47); MEAN CORPUSCULAR HGB 26.1 PG (27.0-31.0); MEAN CORPUSCULAR HGB CONC 32.2 G/DL (33.0-37.0); MEAN PLATELET VOLUME 7.7 FL (7.4-10.4); PLATELET COUNT 374 /CUMM (130-400); RBC DISTRIBUTION WIDTH 17.6 % (11.5-14.5); RED BLOOD CELL CT 3.69 /CUMM (4.20-5.40)
--- NOTE | 2016-11-27 13:30 | RADIOLOGY REPORT ---
EXAMINATION: FLUOROSCOPY UPPER GI WITH GASTROGRAFIN CLINICAL INFORMATION: Status post Chucho patch repair of gastric ulcer on 11/25/2016. Evaluate for leak. COMPARISON: CT scan of the abdomen and pelvis dated 11/25/2016. TECHNIQUE: Preliminary kiln fireman view of the abdomen was obtained. A limited Gastrografin upper GI study was performed using 30 ml of Gastroview with the patient in the semiupright position. Multiple spot films were acquired. FINDINGS: The preliminary kiln fireman view of the abdomen performed on 2 images demonstrate a drain and postsurgical barry in the epigastric region. Additional drain is seen in the left upper quadrant and in the left mid pelvis. Bowel gas pattern is normal. Small amount of subsegmental that might be a small hiatal hernia with atelectasis versus heart is again and trace effusion is seen in the left lung base. Bilateral compression hip screws are partially included. Dense mitral annular calcification is also noted. Esophageal distensibility and motility is normal. The GE junction is located below the level of the diaphragm and no GE reflux seen. There is slight irregularity of the mucosal pattern in the gastric fundus region, perhaps related to the recent Chucho patch repair of a gastric ulcer. Remainder of the stomach is grossly unremarkable though on this limited exam, gastric distensibility cannot be fully assessed. There is prompt emptying into the duodenum with the duodenal bulb and C-sweep appear grossly unremarkable. FLUOROSCOPY TIME: 0.54 minutes. IMPRESSION: Postoperative changes seen associated with the gastric fundus, without evidence of focal leak.
[2016-11-27 14:25] VITALS: BP 112/57
[2016-11-27 22:23] VITALS: BP 120/62
[2016-11-28 07:25] VITALS: BP 130/57
--- NOTE | 2016-11-28 07:57 | PN- General Surgery ---
Surgical Brief Attending Note Brief Attending Note: Pt looks well and has no complaints. She was seen by me at 6pm last night and started on ice chips. Her abdomen is soft and nontender, the ERICKA drains are all serous. We can begin a clear liquid diet today. Will remove the ERICKA that is in the pelvis but leave the other 2 drains. Pt should remain on IV antibiotics but if she is tolerating clears today than I would heplock her IV later. has been ambulating with walker well. Plan for discharge on after 5 days of IV antibiotics and will switch to oral antx at that time
[2016-11-28 08:06] LABS: WHITE BLOOD CELL COUNT 2.4 /CUMM (4.8-10.8)
[2016-11-28 08:29] LABS: ABSOLUTE BASOPHIL COUNT 0 /CUMM (0.0-0.2); ABSOLUTE EOSINOPHIL COUNT 0.1 /CUMM (0.0-0.7); ABSOLUTE GRANULOCYTE CT 1.5 /CUMM (1.4-6.5); ABSOLUTE LYMPH COUNT 0.5 /CUMM (1.2-3.4); ABSOLUTE MONOCYTE COUNT 0.6 /CUMM (0.10-0.60); BASOPHIL % 0.6 % (0.0-2.0); EOSINOPHIL % 5.1 % (0-5); GRANULOCYTE % 53.9 % (42.2-75.2); HEMATOCRIT 29.9 % (37-47); MEAN CORPUSCULAR HGB 25.8 PG (27.0-31.0); MEAN CORPUSCULAR HGB CONC 31.9 G/DL (33.0-37.0); MEAN CORPUSCULAR VOLUME 81.1 FL (81.0-99.0); MEAN PLATELET VOLUME 7.6 FL (7.4-10.4); PLATELET COUNT 362 /CUMM (130-400); RBC DISTRIBUTION WIDTH 17.9 % (11.5-14.5); RED BLOOD CELL CT 3.69 /CUMM (4.20-5.40); WHITE BLOOD CELL COUNT 2.8 /CUMM (4.8-10.8)
[2016-11-28 14:44] VITALS: BP 122/66
--- NOTE | 2016-11-28 15:16 | NUR ---
NSG NOTE: PATIENT HAD INCONTINENT EPISODE OF LOOSE STOOL; THIS IS UNUSAL FOR PATIENT SEEING SHE IS NORMALLY CONTINENT OF BOWEL AND BLADDER; SURGICAL PA SCOTT AWARE AT THIS TIME; WILL CONT TO MONITOR
[2016-11-28 22:05] VITALS: BP 148/82
--- NOTE | 2016-11-29 05:39 | NUR ---
NURSING NOTE: PT GIVEN A PAIN MED DURING DOWNTIME AT 0450 FOR 7/10 PAIN.
[2016-11-29 07:35] VITALS: BP 133/71
--- NOTE | 2016-11-29 07:39 | PN- General Surgery ---
Subjective Subjective: The patient was seen this morning postoperatively day #4. She reports the pain is under adequate control and has no other complaints the current time. She is tolerating a clear liquid diet without nausea and is eager to get out of bed this morning. Her loose bowel movements have resolved and she is overall more comfortable today. Objective Vital Signs and I&Os Vital Signs Date Time Temp Pulse Resp B/P B/P Pulse O2 O2 Flow FiO2 Mean Ox Delivery Rate 11/29 0735 99.7 72 20 133/71 97 11/28 2205 99.2 106 20 148/82 92 11/28 1444 98.7 86 20 122/66 98 Intake & Output 11/29 0800 11/29 0000 11/28 1600 11/28 0800 11/28 0000 11/27 1600 Intake Total 746 954 9646 320 1395 Output Total 60 400 1000 398 310 Balance 540 -55 2440 -986 90 5456 Intake, IV 600 225 740 320 675 Intake, Oral 120 2700 720 Number 2 3 0 0 Bowel Movements Output, 60 48 60 Drainage Output, Urine 400 1000 350 250 Patient 135 lb Weight Physical Exam: Gen.: Alert and in no obvious distress Skin: Warm and dry Abdomen: Soft, nondistended, appropriate incisional tenderness, bowel sounds positive. JPs are in place and holding suction with serous drainage in bulbs. Extremities: Bilateral lower extremities warm without calf tenderness. Assessment/Plan Assessment/Plan Assessment: 81-year-old female status post Chucho patch repair of perforated ulcer postoperative day #4. The patient is progressing as expected, her pain is under adequate control, and she is tolerating a clear liquid diet without nausea. Plan: Keep on clear liquid diet Follow-up morning laboratory studies Continue IV antibiotics Hep-Lock IV fluids Strict I's and O's GI and DVT prophylaxis Out of bed and ambulate Continue current pain regiment Keep JPs to self suction will probably remove them tomorrow Core Measures/Miscellaneous Tavares Catheter Date In: 11/24/16 Venous Thromboembolism VTE Risk Factors: Age > 40, Surgery VTE Contraindications: No Contraindications VTE Diagnosis: No Beta Ger Is Beta Ger a Home Med? No Antibiotics Is Patient on Antibiotics? Yes If Yes: infection
[2016-11-29 08:02] LABS: ABSOLUTE BASOPHIL COUNT 0 /CUMM (0.0-0.2); ABSOLUTE EOSINOPHIL COUNT 0.1 /CUMM (0.0-0.7); ABSOLUTE LYMPH COUNT 0.6 /CUMM (1.2-3.4); ABSOLUTE MONOCYTE COUNT 0.9 /CUMM (0.10-0.60); HEMATOCRIT 30.1 % (37-47); MEAN PLATELET VOLUME 7.3 FL (7.4-10.4)
[2016-11-29 08:23] LABS: ABSOLUTE GRANULOCYTE CT 3.8 /CUMM (1.4-6.5); BASOPHIL % 0.6 % (0.0-2.0); EOSINOPHIL % 1.8 % (0-5); MEAN CORPUSCULAR HGB CONC 32.3 G/DL (33.0-37.0); MEAN CORPUSCULAR VOLUME 80.6 FL (81.0-99.0); PLATELET COUNT 404 /CUMM (130-400); RED BLOOD CELL CT 3.74 /CUMM (4.20-5.40)
[2016-11-29 08:29] LABS: WHITE BLOOD CELL COUNT 5.4 /CUMM (4.8-10.8)
[2016-11-29 16:00] VITALS: BP 110/64
[2016-11-29 21:57] VITALS: BP 120/60
[2016-11-30 06:54] VITALS: BP 134/74
--- NOTE | 2016-11-30 07:50 | PN- General Surgery ---
Subjective Subjective: The patient was seen this morning postoperatively day #5. She reports her pain is in adequate control and she is tolerating a full liquid diet without nausea. She is still very concerned that she is unable to manage herself because she is having frequent loose bowel movements. She had no other complaints the current time. Objective Vital Signs and I&Os Vital Signs Date Time Temp Pulse Resp B/P B/P Pulse O2 O2 Flow FiO2 Mean Ox Delivery Rate 11/30 0654 98.1 97 20 134/74 95 Room Air 11/29 2157 99.1 109 20 120/60 94 11/29 1600 98.4 92 16 110/64 96 Room Air Intake & Output 11/30 0800 11/30 0000 11/29 1600 11/29 0800 11/29 0000 11/28 1600 Intake Total 120 240 770 404 355 8329 Output Total 30 320 362 084 4154 Balance 90 -80 770 140 -55 2440 Intake, IV 120 120 250 600 225 740 Intake, Oral 120 334 139 6202 Number 1 0 5 2 Bowel Movements Output, 30 20 60 Drainage Output, Urine 300 709 517 3451 Patient 135 lb Weight Physical Exam: Gen.: Alert and in no obvious distress Skin: Warm and dry Abdomen: Soft, nondistended, appropriate incisional tenderness, bowel sounds positive. Surgical incision is clean, dry, and intact without signs of infection. There are 2 ERICKA is holding suction with serous drainage and bulbs. Extremities: Bilateral lower extremities are warm without calf tenderness or significant edema. Assessment/Plan Assessment/Plan Assessment: 81-year-old female status post Chucho patch repair of perforated gastric ulcer postoperative day 5. The patient is progressing as expected, her pain is under adequate control, she is tolerating liquid diet without nausea. She continues to have frequent loose bowel function which she finds very concerning. Plan: Continue full liquid diet Will add acidophilus Continue IV antibiotics Keep JPs to self suction Follow-up morning laboratory studies GI and DVT prophylaxis Out of bed and ambulate Core Measures/Miscellaneous Tavares Catheter Date In: 11/24/16 Venous Thromboembolism VTE Risk Factors: Age > 40, Surgery VTE Contraindications: No Contraindications VTE Diagnosis: No Beta Ger Is Beta Ger a Home Med? No Antibiotics Is Patient on Antibiotics? Yes If Yes: infection
[2016-11-30 08:01] LABS: ABSOLUTE BASOPHIL COUNT 0 /CUMM (0.0-0.2); ABSOLUTE EOSINOPHIL COUNT 0.1 /CUMM (0.0-0.7); ABSOLUTE GRANULOCYTE CT 3.8 /CUMM (1.4-6.5); ABSOLUTE LYMPH COUNT 0.8 /CUMM (1.2-3.4); ABSOLUTE MONOCYTE COUNT 0.9 /CUMM (0.10-0.60); BASOPHIL % 0.6 % (0.0-2.0); EOSINOPHIL % 1.5 % (0-5); GRANULOCYTE % 67.4 % (42.2-75.2); MEAN CORPUSCULAR HGB 25.9 PG (27.0-31.0); MEAN CORPUSCULAR HGB CONC 32.5 G/DL (33.0-37.0); MEAN CORPUSCULAR VOLUME 79.6 FL (81.0-99.0); MEAN PLATELET VOLUME 7.2 FL (7.4-10.4); PLATELET COUNT 451 /CUMM (130-400); RBC DISTRIBUTION WIDTH 17.5 % (11.5-14.5); RED BLOOD CELL CT 3.64 /CUMM (4.20-5.40); WHITE BLOOD CELL COUNT 5.7 /CUMM (4.8-10.8)
[2016-11-30 14:17] VITALS: BP 106/60
[2016-11-30 22:05] VITALS: BP 106/68
[2016-12-01 06:33] VITALS: BP 132/82
[2016-12-01 07:41] LABS: ABSOLUTE BASOPHIL COUNT 0 /CUMM (0.0-0.2); ABSOLUTE EOSINOPHIL COUNT 0.1 /CUMM (0.0-0.7); ABSOLUTE GRANULOCYTE CT 3.9 /CUMM (1.4-6.5); ABSOLUTE LYMPH COUNT 0.8 /CUMM (1.2-3.4); ABSOLUTE MONOCYTE COUNT 0.8 /CUMM (0.10-0.60); BASOPHIL % 0.2 % (0.0-2.0); EOSINOPHIL % 1.6 % (0-5); HEMATOCRIT 29.2 % (37-47); MEAN CORPUSCULAR HGB 26.1 PG (27.0-31.0); MEAN CORPUSCULAR HGB CONC 32.6 G/DL (33.0-37.0); MEAN PLATELET VOLUME 7.5 FL (7.4-10.4); PLATELET COUNT 503 /CUMM (130-400); RBC DISTRIBUTION WIDTH 17.3 % (11.5-14.5); RED BLOOD CELL CT 3.65 /CUMM (4.20-5.40); WHITE BLOOD CELL COUNT 5.6 /CUMM (4.8-10.8)
--- NOTE | 2016-12-01 08:32 | PN- General Surgery ---
Subjective Subjective: The patient was seen this morning postoperatively day #6. She reports her pain is in adequate control and she is tolerating a full liquid diet without nausea. She reports that her frequency of bowel movements has somewhat decreased. She had no other complaints the current time. Objective Vital Signs and I&Os Vital Signs Date Time Temp Pulse Resp B/P B/P Pulse O2 O2 Flow FiO2 Mean Ox Delivery Rate 12/01 0633 98.6 110 18 132/82 95 Room Air 11/30 2205 98.2 90 20 106/68 98 Room Air 11/30 1600 Room Air 11/30 1417 98.3 98 20 106/60 96 Room Air Intake & Output 12/01 1600 12/01 0800 12/01 0000 11/30 1600 11/30 0800 11/30 0000 Intake Total 370 450 450 120 240 Output Total 350 115 340 280 320 Balance 20 335 110 -160 -80 Intake, IV 130 250 120 120 Intake, Oral 240 450 200 120 Number 1 0 2 0 Bowel Movements Output, 15 40 30 20 Drainage Output, Urine 350 100 300 250 300 Physical Exam: General: Alert and oriented x3, no acute distress Cardiac: RRR, Murmur, s1s2 Pulmonary: CTA bilateral Abdomen: Softly distended, ERICKA x2 in place with serous drainage Extremities: Distal sensations intact, moves all extremities. Left lower extremity with 2+ pitting edema in foot and ankle. No redness. skin warm and well perfused, dp pulses palpable. bilateral calves soft and non-tender. Assessment/Plan Assessment/Plan This is a 81 year old female, POD 6 s/p laparoscopy with abdominal washout and myranda patch for perforated gastric ulcer. -Contiune ERICKA x2 for now, consider dc later today -Continue rocephin/flagyll -Continue full liquid diet -Hep sq for dvt ppx -ALPS/TEDS -Plan for discharge on full liquid diet -Will d/w Dr. Sterling Core Measures/Miscellaneous Tavares Catheter Date In: 11/24/16 Venous Thromboembolism VTE Risk Factors: Age > 40, Surgery VTE Contraindications: No Contraindications VTE Diagnosis: No Beta Ger Is Beta Ger a Home Med? No Antibiotics Is Patient on Antibiotics? Yes If Yes: infection
--- NOTE | 2016-12-01 10:37 | NUR ---
Physical Therapy: Pt was observed ambulating with supervision and RW with a family member in the hallways last evening. Patient appears to be at her baseline mobility. Will discontinue skilled PT intervention at this time. Thank you.
[2016-12-01 14:06] VITALS: BP 128/76
[2016-12-01 22:34] VITALS: BP 130/72
[2016-12-02 07:28] VITALS: BP 124/86
--- NOTE | 2016-12-02 11:00 | NUR ---
NURSING NOTE: PT LEFT FLOOR VIA STRETCHER WITH DISTRIBUTION FOR BLE US PER MD ORDER, PT AWAKE, A/OX3, ROOM AIR, IV PATENT, AWAIT RETURN TO FLOOR. TICKET TO ROSEY CHRISTOPHER
--- NOTE | 2016-12-02 11:20 | PN- General Surgery ---
Subjective Subjective: POD #7 s/p laparoscopic myranda patch/washout for perforated gastric ulcer. Remains on MSD, having diarrhea overnight. Remains on IV antibiotics (Day 7/). Ambulating well. Voiding spontaneously. Complains of lower extremity swelling. Objective Vital Signs and I&Os Vital Signs Date Time Temp Pulse Resp B/P B/P Pulse O2 O2 Flow FiO2 Mean Ox Delivery Rate 12/02 0728 98.4 104 20 124/86 95 Room Air 12/01 2234 97.4 102 20 130/72 98 Room Air 12/01 1406 99.1 105 18 128/76 97 Room Air Intake & Output 12/02 1600 12/02 0800 12/02 0000 12/01 1600 12/01 0800 12/01 0000 Intake Total 370 120 900 370 450 Output Total 220 300 155 350 115 Balance 150 -180 745 20 335 Intake, IV 130 130 Intake, Oral 240 120 900 240 450 Number 4 1 Bowel Movements Output, 20 55 15 Drainage Output, Urine 200 300 100 350 100 Physical Exam: Gen: AAOx3 in NAD cor; S1+S2+ Lungs: CTA slick Abd: soft, NT, ND, +BS x4 ERICKA x2 with serous drainage Ext: significant edema from foot to thighs slick. Palpable DP pulses slick. Negative Sandra's slick Current Medications: Current Medications Sig/Adriano Start time Last Medication Dose Route Stop Time Status Admin Acetaminophen 1,000 MG Q6P PRN 11/25 1645 DC 11/26 N/A 1 UNIT IV 1447 Ceftriaxone Sodium 1,000 MG Q24H 11/26 1400 DC 12/01 IV 1427 Furosemide 20 MG ONCE ONE 12/02 1215 UNVr IV 12/02 1216 Heparin Sodium 5,000 UNIT Q8 11/25 1400 AC 11/27 (Porcine) SC 1344 Hydromorphone HCl 0.5 MG Q3P PRN 11/26 1015 DC 12/01 IV 1045 Lactobacillus 1 CAP BID 11/30 1000 AC 12/02 Acidophilus PO 1023 Metronidazole 500 MG Q8H 11/26 1200 DC 12/02 N/A 1 UNIT IV 0501 Omeprazole 40 MG DAILY AC 12/02 0700 AC 12/02 PO 0501 Ondansetron HCl 4 MG Q6P PRN 11/25 1200 AC IV Oxycodone/ 1 TAB Q4P PRN 12/01 1545 AC Acetaminophen PO Oxycodone/ 2 TAB Q4P PRN 12/01 1545 AC 12/02 Acetaminophen PO 1023 Pantoprazole Sodium 40 MG DAILY 11/25 1207 DC 12/01 IV 1045 Patient Medication 1 ED .STK-MED ONE 12/01 1358 [place] Teaching ED 12/01 1359 Results Last 48 Hours of Labs: Laboratory Tests 12/01 0624 Chemistry Sodium (137 - 145 mmol/L) 139 Potassium (3.5 - 5.1 mmol/L) 3.8 Chloride (98 - 107 mmol/L) 107 Carbon Dioxide (22 - 30 mmol/L) 23 Anion Gap (5 - 16) 9 BUN (7 - 17 mg/dL) 10 Creatinine (0.5 - 1.0 mg/dL) 0.5 Estimated GFR (>60 ml/min) > 60 BUN/Creatinine Ratio (7 - 25 %) 20.0 Hematology CBC w Diff NO MAN DIFF REQ WBC (4.8 - 10.8 /CUMM) 5.6 RBC (4.20 - 5.40 /CUMM) 3.65 L Hgb (12.0 - 16.0 G/DL) 9.5 L Hct (37 - 47 %) 29.2 L MCV (81.0 - 99.0 FL) 80.0 L MCH (27.0 - 31.0 PG) 26.1 L RDW (11.5 - 14.5 %) 17.3 H Plt Count (130 - 400 /CUMM) 503 H MPV (7.4 - 10.4 FL) 7.5 Gran % (42.2 - 75.2 %) 70.0 Lymphocytes % (20.5 - 51.1 %) 13.5 L Monocytes % (1.7 - 9.3 %) 14.7 H Eosinophils % (0 - 5 %) 1.6 Basophils % (0.0 - 2.0 %) 0.2 Absolute Granulocytes (1.4 - 6.5 /CUMM) 3.9 Absolute Lymphocytes (1.2 - 3.4 /CUMM) 0.8 L Absolute Monocytes (0.10 - 0.60 /CUMM) 0.8 H Absolute Eosinophils (0.0 - 0.7 /CUMM) 0.1 Absolute Basophils (0.0 - 0.2 /CUMM) 0 PUBS MCHC (33.0 - 37.0 G/DL) 32.6 L Assessment/Plan Assessment/Plan A: POD #7 s/p laparoscopic myranda patch with washout for a perforated gastric ulcer; AVSS Plan; D/C antibiotics. JPs to stay in place per DR. Eva DIEZ and ambulate Lasix 20 mg IV x1 to alleviate lower extremity swelling DVT study performed- negative for DVT slick. Core Measures/Miscellaneous Tavares Catheter Date In: 11/24/16 Venous Thromboembolism VTE Risk Factors: Age > 40, Surgery VTE Contraindications: No Contraindications VTE Diagnosis: No Beta Ger Is Beta Ger a Home Med? No Antibiotics Is Patient on Antibiotics? Yes If Yes: infection
--- NOTE | 2016-12-02 12:16 | ULTRASOUND REPORT ---
EXAMINATION: US TRIPLEX LOWER EXTREMITY, BILATERAL CLINICAL INFORMATION: Bilateral lower extremity edema. COMPARISON: None TECHNIQUE: Color-flow triplex imaging with spectral analysis and compression Doppler were performed on the bilateral lower extremities. FINDINGS: The common femoral vein is compressible and exhibits a normal phasic waveform, bilaterally; this suggests that the iliac veins are widely patent above. Within each proximal thigh, the visualized profunda femoris vein is patent. The visualized greater saphenous vein and saphenofemoral junction are normal, bilaterally. Superficial femoral vein is patent in the proximal, mid and distal aspect of each thigh. Popliteal vein appears normal to the level of the trifurcation, bilaterally, and the visualized calf veins are grossly patent on color Doppler imaging. There is edema within subcutaneous tissues of each leg. In the right popliteal fossa, there is a 0.9 x 1.2 x 3.5 cm Fraire's cyst. IMPRESSION: 1. No evidence of deep vein thrombosis in either lower extremity. 2. Subcutaneous tissue edema is present within both lower extremities. 3. There is a 0.9 x 1.2 x 3.5 cm Fraire cyst of the right popliteal fossa.
[2016-12-02 14:32] VITALS: BP 148/72
[2016-12-02] MEDS ORDERED: PERCOCET 5-3251 EACH PO (17:23)
--- NOTE | 2016-12-02 17:27 | Patient Discharge Instructions ---
Discharge Instructions General Discharge Information You were seen/treated for: perforated gastric ulcer You had these procedures: laparoscopic myranda patch/washout of abdomen Watch for these problems: increased pain, redness or drainage from incisions, fever greater than 101F, chest pain or shortness of breath Do not soak the wound: Yes No bath, but you may shower: Yes Other wound care: Dry dressing changes over drain sites. Can stop placing dressings if there is no further leakage from wounds. Diet Continue normal diet: No Recommended Diet: mechanical soft Activity Full Activity/No Limits: No Activity Self Limited: Yes Pounds, do NOT lift more than: 10 Additional ACTIVITY Info: You may shower. Avoid baths, hot tubs or swimming, meaning do not submerge wounds. Acute Coronary Syndrome Inclusion Criteria At DC or during hospital stay patient has or had the following: ACS DIAGNOSIS No Discharge Core Measures Meds if any: Prescribed or Continued at Discharge Meds if any: NOT Prescribed or Continued at Discharge Congestive Heart Failure Inclusion Criteria At DC or during hospital stay patient has or had the following: CHF DIAGNOSIS No Discharge Core Measures Meds if any: Prescribed or Continued at Discharge Meds if any: NOT Prescribed or Continued at Discharge Cerebrovascular accident Inclusion Criteria At DC or during hospital stay patient has or had the following: CVA/TIA Diagnosis No Discharge Core Measures Meds if any: Prescribed or Continued at Discharge Meds if any: NOT Prescribed or Continued at Discharge Venous thromboembolism Inclusion Criteria VTE Diagnosis No VTE Type NONE VTE Confirmed by (Test) NONE Discharge Core Measures - Per Current guidelines, there needs to be overlap - treatment for the first 5 days of Warfarin therapy. - If discharged on Warfarin prior to 5 days of - overlap therapy, the patient will need to be - assessed for post discharge needs including - *Post discharge parental anticoagulation - *Warfarin and/or parental anticoagulation education - *Follow up date to check INR post discharge At least 5 days overlap therapy as Inpatient No Meds if any: Prescribed or Continued at Discharge Note: Overlap Therapy is Warfarin and Anticoagulant Meds if any: NOT Prescribed or Continued at Discharge
[2016-12-02 23:19] VITALS: BP 134/83
[2016-12-03 07:46] VITALS: BP 140/75
--- NOTE | 2016-12-03 08:48 | PN- General Surgery ---
See Addendum Subjective Subjective: Pt has no major complaints this morning. Pain is reasonably controlled with percocet. She is tolerating mechanical soft diet. Admits to taking in about 50% of her meals. She received lasix yesterday x 1 due to leg swelling and diuresed well. Ultrasounds of the LE ruled out DVT. She is having occassional small soft BM's. Otherwise no complaints of BRITO, dizziness, CP, SOB. She ambulates independently. Objective Vital Signs and I&Os Vital Signs Date Time Temp Pulse Resp B/P B/P Pulse O2 O2 Flow FiO2 Mean Ox Delivery Rate 12/03 0746 98.8 104 20 140/75 95 Room Air 12/02 2319 98.0 111 20 134/83 97 Room Air 12/02 1432 97.9 104 20 148/72 95 Room Air Intake & Output 12/03 1600 12/03 0800 12/03 0000 12/02 1600 12/02 0800 12/02 0000 Intake Total 480 720 950 370 120 Output Total 200 500 470 220 300 Balance 280 220 480 150 -180 Intake, IV 50 130 Intake, Oral 480 720 900 240 120 Number 1 1 3 Bowel Movements Output, 20 20 Drainage Output, Urine 200 500 450 200 300 Physical Exam: Gen.: Patient is awake and alert. No acute distress. She is sitting in the chair and appears comfortable. Cardiac: Regular Pulmonary: Lungs are clear bilaterally. Abdomen: Soft and mildly distended. ERICKA drains times to remain in place with scant serous output. No purulence or bilious output is noted. There is some serous drainage around the tubes. No significant tenderness. Normal to hyperactive bowel sounds are heard. Extremities: The lower extremities are edematous bilaterally, but significantly decreased versus yesterday according to both patient and nurse reports. There is mild bilateral calf tenderness, but improved since yesterday per patient. Legs are warm. Assessment/Plan Assessment/Plan Patient is an 81-year-old female with no major medical history, who is now postoperative day #8 status post arthroscopic Chucho patch repair of a gastric ulcer. She has 2 ERICKA drains remaining. She is having good bowel function. Postoperative course was, daily by lower extremity edema. Ultrasound's were negative for DVT and she is responding well to Lasix. Plan: -Okay to continue mechanical soft diet. -Will give another dose of oral Lasix today. -Will discuss the plan for removal of the JPs with attending. If they are not removed today, we will change the dressings. -Antibiotics were discontinued yesterday. Patient is afebrile. -Continue Percocet as needed for pain control. -Continue ambulation. Continue subcutaneous heparin for DVT prophylaxis until discharge. -Continue Prilosec for GI prophylaxis. Patient will be discharged on a PPI. -Anticipate discharge to home today or tomorrow. Will discuss with attending. Core Measures/Miscellaneous Tavares Catheter Date In: 11/24/16 Venous Thromboembolism VTE Risk Factors: Age > 40, Surgery VTE Contraindications: No Contraindications VTE Diagnosis: No Beta Ger Is Beta Ger a Home Med? No Antibiotics Is Patient on Antibiotics? Yes If Yes: infection
[2016-12-03 14:23] VITALS: BP 135/98
[2016-12-03 14:36] VITALS: BP 130/80
[2016-12-03 22:47] VITALS: BP 132/70
[2016-12-04 06:16] VITALS: BP 122/78
--- NOTE | 2016-12-04 07:19 | PN- General Surgery ---
Subjective Subjective: The patient was seen this morning. She reports feeling much better now that drains have come out. She is tolerating a mechanical soft diet without nausea and having regular bowel movements. She denies any pain at the current time and is eager to go home today. Objective Vital Signs and I&Os Vital Signs Date Time Temp Pulse Resp B/P B/P Pulse O2 O2 Flow FiO2 Mean Ox Delivery Rate 12/04 0616 98.3 98 20 122/78 95 12/03 2247 98.7 100 20 132/70 97 Room Air 12/03 1436 130/80 12/03 1423 98.1 64 20 135/98 93 Room Air 12/03 0746 98.8 104 20 140/75 95 Room Air Intake & Output 12/04 0800 12/04 0000 12/03 1600 12/03 0800 12/03 0000 12/02 1600 Intake Total 220 850 860 480 720 950 Output Total 550 400 475 200 500 470 Balance -330 450 385 280 220 480 Intake, IV 10 50 Intake, Oral 220 850 850 480 720 900 Number 1 1 1 1 3 Bowel Movements Output, 20 Drainage Output, Urine 550 400 475 200 500 450 Physical Exam: Gen.: Alert and in no obvious distress Skin: Warm and dry Abdomen: Softly distended, minimal incisional tenderness, bowel sounds positive. Surgical sites are clean, dry, and intact without signs of infection. Extremities: Bilateral lower extremities warm without calf tenderness. There remains 1+ pitting edema bilaterally. Gross motor and sensory are intact. Assessment/Plan Assessment/Plan Assessment: 79-year-old female status post Chucho patch repair of perforated gastric ulcer. Postoperative patient has progressed as expected, is tolerating a diet, and her bowel functions returned. Plan: Out of bed with physical therapy Continue current pain regiment Mechanical soft diet GI and DVT prophylaxis Discharge home later today Core Measures/Miscellaneous Tavares Catheter Date In: 11/24/16 Venous Thromboembolism VTE Risk Factors: Age > 40, Surgery VTE Contraindications: No Contraindications VTE Diagnosis: No Beta Ger Is Beta Ger a Home Med? No Antibiotics Is Patient on Antibiotics? No
== END 2016-12-04 13:10 | DRG 326 ==
LOC: ENRESERVDT → ENRESERVTM → ERH 02:29 → 2NB 06:15 → ERHI 06:15 → CRI 09:58 → 2NB 11:51 → ENPENDDIS 12-04 07:22 → 2NB 12-04 13:10
PROVIDERS: Nurse Practitioner; Pediatrics; Physician Assistant; Physician Assistant Surgical; ADMIT Surgery
PROC: 0DU647Z Supplement Stomach with Autologous Tissue Substitute, Percutaneous Endoscopic Approach (ICD-10-PCS; principal; 2016-11-25)
DX: K25.5 Chronic or unspecified gastric ulcer with perforation (principal); K65.9 Peritonitis, unspecified; I44.7 Left bundle-branch block, unspecified
CPT/HCPCS: 2NBSP; 36415; 74176; 74230; 81001; 82436; 87086; 93005; 93010; 93970; 96365; 96375; 97110-GO; 97116-GO; 97162-GP; 97530-GO; C9399; J0131; J0696; J1170; J1644; J1885; J1940; J2405; J3010